=== PATIENT | male | born 1995 | race Caucasian/White ===

== ENCOUNTER 2016-12-01 00:11 | Inpatient (IN) | payer OTHER ==
[~2016-12-01] VITALS: Ht 177.8 cm; Wt 97.4 kg
[~2016-12-01 00:11] MED LIST: CYCLOBENZAPRINE10 MG PO; ESCITALOPRAM OX10 MG PO; ESCITALOPRAM OX20 MG PO; FOCALIN XR30 MG PO; LISINOPRIL10 MG PO; LISINOPRIL2.5 MG PO; MOTRIN800 MG PO; NORCO 5/3251 TABLET PO; ZOFRAN ODT8 MG PO
[2016-12-01 00:51] LABS: HEMATOCRIT 41.1 % (38.0-50.0); MCH 28.6 PG (29.0-34.0); MCHC 33.3 G/DL (30.0-36.0); MCV 85.8 FL (86-99); MEAN PLAT.VOLUME 9.5 uM^3 (9.0-12.4); PLATELET COUNT 269 K/uL (156-360); RBC DIS.WIDTH-CV 11.9 % (11.8-14.6); RBC DIS.WIDTH-SD 37.6 % (39-53); RED BLOOD COUNT 4.79 M/uL (4.00-5.50); WHITE BLOOD COUNT 9.1 K/uL (4.1-10.2)
[2016-12-01 00:59] LABS: CHLORIDE 105 mEq/L (99-109); POTASSIUM 3.4 mEq/L (3.7-5.4); SODIUM 140 mEq/L (136-147)
[2016-12-01 01:01] LABS: GLUCOSE 97 mg/dL (70-99)
[2016-12-01 01:02] LABS: ANION GAP 9 MEQ/L (2-14)
[2016-12-01 01:04] LABS: SERUM ETHYL ALCOHOL < 10 mg/dL
[2016-12-01 01:05] LABS: GFR ESTIMATE (CALCULATED) > 59 mL/min/
[2016-12-01 01:06] LABS: UREA NITROGEN (BUN) 11 mg/dL (9-23)
[2016-12-01] MEDS ORDERED: DULOXETINE HCL60 MG PO (01:31)
[2016-12-01] MEDS ORDERED: BACLOFEN10 MG PO (01:33)
[2016-12-01] MEDS ORDERED: METHYLPHENIDATE20 M1 PO (01:35)
[2016-12-01] MEDS ORDERED: RITALIN LA30 MG PO (01:35)
[2016-12-01] MEDS ORDERED: LYRICA75 MG PO (01:36)
[2016-12-01] MEDS ORDERED: QUETIAPINE FUMA25 MG PO (01:36)
[2016-12-01 02:34] LABS: ADD MEDTOX COMMENT Y; AMPHETAMINE NEGATIVE (500 ng/mL); BARBITURATES NEGATIVE (200 ng/mL); BENZODIAZEPINES NEGATIVE (150 ng/mL); COCAINE NEGATIVE (150 ng/mL); INTERNAL CONTROLS VALID? YES; METHADONE NEGATIVE (200 ng/mL); METHAMPHETAMINE NEGATIVE (500 ng/mL); OPIATES (MORPHINE) NEGATIVE (100 ng/mL); OXYCODONE NEGATIVE (100 ng/mL); PHENCYCLIDINE NEGATIVE (25 ng/mL); PROPOXYPHENE NEGATIVE (300 ng/mL); THC CANNABINOIDS PRESUMPTIVE POSITIVE (50 ng/mL); TRICYCLIC ANTIDEPRESSANTS NEGATIVE (300 ng/mL)
[2016-12-01 14:24] VITALS: BP 155/90
[2016-12-01 17:58] VITALS: BP 133/71
[2016-12-02 07:40] VITALS: BP 126/68
[2016-12-02 15:54] VITALS: BP 139/79
[2016-12-03 07:44] VITALS: BP 113/63
[2016-12-03 15:31] VITALS: BP 147/82
[2016-12-04 07:38] VITALS: BP 110/67
[2016-12-04 15:45] VITALS: BP 150/67
[2016-12-05] MEDS ORDERED: BUPROPION XL150 MG PO (07:24)
[2016-12-05] MEDS ORDERED: ZOLPIDEM TARTRAT5 MG PO (07:24)
[2016-12-05 07:35] VITALS: BP 116/74
== END 2016-12-05 12:35 | disposition home or self-care (01) | DRG 885 ==
LOC: EME 00:11 → EDOF 13:05 → 1WEST 13:05
DX: F33.3 Major depressive disorder, recurrent, severe with psychotic symptoms (principal); R45.851 Suicidal ideations; F33.2 Major depressive disorder, recurrent severe without psychotic features; F90.9 Attention-deficit hyperactivity disorder, unspecified type; I10 Essential (primary) hypertension; G47.00 Insomnia, unspecified; Z87.891 Personal history of nicotine dependence
CPT/HCPCS: 80048; 84999; 85027; 90839; 97150 GO; 97165 GO; 99281; 99285; G0480

== ENCOUNTER 2017-09-12 00:01 | Emergency (ER) | payer OTHER ==
[~2017-09-12] VITALS: Ht 180.3 cm; Wt 114.4 kg
[~2017-09-12 00:01] MED LIST changes: +BACLOFEN10 MG PO; +BUPROPION XL150 MG PO; +DULOXETINE HCL60 MG PO; +LYRICA75 MG PO; +METHYLPHENIDATE20 M1 PO; +QUETIAPINE FUMA25 MG PO; +RITALIN LA30 MG PO; +ZOLPIDEM TARTRAT5 MG PO
[2017-09-12] MEDS ORDERED: BACTRIM,SEPT1 TABLET PO (00:44)
[2017-09-12 00:52] VITALS: BP 156/95
== END 2017-09-12 00:55 | disposition home or self-care (01) ==
LOC: EME 00:01
PROC: 0H9EXZZ Drainage of Left Lower Arm Skin, External Approach (ICD-10-PCS; principal; 2017-09-12)
DX: L02.414 Cutaneous abscess of left upper limb (principal); F17.200 Nicotine dependence, unspecified, uncomplicated
CPT/HCPCS: 99281; 99283